=== PATIENT | female | born 1985 | race American Indian/Alaskan Native ===

== ENCOUNTER 2016-08-25 19:06 | Outpatient (CLI) | payer MEDICAID ==
[2016-08-25 19:27] VITALS: BP 135/72
[2016-08-25] MEDS ORDERED: LACTATED RINGERS 500 ML IV ONE (19:29)
== END 2016-08-25 20:12 | disposition home or self-care (01) ==
LOC: TRG 19:06
PROVIDERS: ATTEND Obstetrics & Gynecology
DX: O47.03 False labor before 37 completed weeks of gestation, third trimester (principal); Z3A.34 34 weeks gestation of pregnancy
CPT/HCPCS: J7120